=== PATIENT | female | born 1975 | race American Indian/Alaskan Native ===

== ENCOUNTER 2016-09-21 22:18 | Emergency (ER) | payer MEDICAID ==
[2016-09-21] MEDS ORDERED: Ranitidine 50 MG/2 ML SDV ONE (22:53)
[2016-09-21] MEDS ORDERED: Ranitidine 50 MG/2 ML SDV IV SCH (23:00)
[2016-09-21] MEDS ORDERED: Sodium Chloride 0.9% 500 ML IV SCH (23:15)
[2016-09-21 23:27] VITALS: BP 123/73
[2016-09-22] MEDS ORDERED: GI Cocktail Oral Solution 30 ML PO ONE (00:22)
[2016-09-22] MEDS ORDERED: Acetaminophen/HYDROcodone 325-5 MG Tab ONE (00:42)
--- NOTE | 2016-09-22 04:52 | ER ---
HISTORY OF PRESENT ILLLNESS: The patient presents to the emergency room by ambulance. The patient is the historian. Her chief complaint is epigastric pain that developed approximately 4 hours prior to arrival. She did have some dry heaves. In the ambulance, she was given morphine for abdominal discomfort and Zofran for nausea. The patient states that she has had a history of gallstone in the past. She has no history of peptic ulcer disease. She states that she is a smoker, does not do any street drugs, or drink alcohol to any significant degree. She has not had any alcohol recently. She gets her medical care in [place] where they are treating her for hypothyroidism and depression. She is on Synthroid 125 mg p.o. daily, Zoloft 50 mg daily, and Remeron 30 mg p.o. daily. REVIEW OF SYSTEMS: The patient denies headache, fever, chills, cough, wheeze, shortness of breath, chest pain, palpitations, CVA pain, dysuria, joint inflammation, limitations of joint motions, skin rashes, or neurologic complaints. She does think she could be . She does admit to having some constipation. OBJECTIVE: GENERAL: A well-developed, well-nourished female. She is alert and oriented x3. She appears to be in some mild distress due to epigastric discomfort. She has no heaves, no dry heaves. VITAL SIGNS: Upon admission, show temperature 99.3, blood pressure 123/73, pulse is 56, respirations 18, and she is 100% saturated on room air. SKIN: Anicteric. It is dry with good turgor. There is no rash. EYES: EOMI, PERRLA , and anicteric. ENT: Throat is clear and moist. HEART: Regular rate and rhythm. No murmurs, rubs, or gallops. No S3, no S4. LUNGS: Clear. BACK: No CVA or cord tenderness. ABDOMEN: Soft. Bowel sounds x4. No organomegaly. No rebound. No discomfort except for epigastric pain, but this seems to be somewhat mild in nature. NEUROLOGIC: Normal. EXTREMITIES: No clubbing, cyanosis, or edema. Labs were performed. EKG from the ambulance showed normal sinus rhythm, no evidence of acute ischemia. CBC was normal without a shift. CMP was normal. UA was normal. Amylase and lipase were normal. In the emergency room, the patient was given Zantac 50 mg IV and a GI cocktail and she did have some relief with this, but was not totally pain free. A flat and upright was ordered after her test came back negative, the film showed only stool to be present. No evidence of perforation, no air/fluid levels and, no gallstones noted on her x-ray. ASSESSMENT: Epigastric pain. PLAN: The patient will follow up with her physician in the morning. She was given hydrocodone 5/APAP 325 one p.o. q.4 hours p.r.n., #3, were dispensed. A prescription for omeprazole 20 mg 1 p.o. daily was written and she can also use [id number] Zantac p.r.n. as directed on the label. The patient will return if she gets worsening pain, fever, vomiting. The patient was discharged to home, picked up by family members. DIAGNOSES: 1. Epigastric pain. 2. Gastritis. LORNA/YASIR /[id number] NIGEL
--- NOTE | 2016-09-22 09:39 | CR ---
DATE OF SERVICE: 09/21/16 CLINICAL DATA: abdominal pain SUPINE AND UPRIGHT ABDOMEN: There is a moderate amount of gas and stool present throughout the colon. No evidence of obstruction or ileus. No free air. There is a 2 mm calcification in the left pelvis which is most likely vascular. Distal ureteral calculi should be considered. The exam is otherwise negative. [id number] [facility]
== END 2016-09-22 00:56 | disposition home or self-care (01) ==
LOC: LB.ED 22:18
DX: R10.13 Epigastric pain (principal)
CPT/HCPCS: 36415; 74020; 80053; 81001; 81025; 82150; 83690; 85025; 96360; 99284; A9270; J2780; J7050

== ENCOUNTER 2016-12-25 11:05 | Emergency (ER) | payer MEDICAID ==
[2016-12-25] MEDS ORDERED: HYDROmorphone 2 MG/ML Syringe IVPUSH ONE (11:25)
[2016-12-25] MEDS ORDERED: Sodium Chloride 0.9%, Bacteriostatic 10 ML MDV IV SCH (11:30)
[2016-12-25] MEDS ORDERED: HYDROmorphone 2 MG/ML Syringe ONE (11:31)
[2016-12-25 11:53] VITALS: BP 108/68
[2016-12-25] MEDS ORDERED: GI Cocktail Oral Solution 30 ML PO ONE (12:59)
[2016-12-25] MEDS ORDERED: HYDROmorphone 4 MG/ML Syringe IV ONE (13:45)
[2016-12-25] MEDS ORDERED: traMADol 50 MG Tab ONE (14:00)
[2016-12-25] MEDS ORDERED: Omeprazole 20 MG Cap.CR ONE (14:00)
--- NOTE | 2016-12-25 14:40 | EDM.PDOC ---
ED HPI GENERAL MEDICAL PROBLEM - General Stated Complaint: Epigastric pain Time Seen by Provider: 12/25/16 11:05 Source of Information: Reports: Patient History Limitations: Reports: No Limitations - History of Present Illness INITIAL COMMENTS - FREE TEXT/NARRATIVE: Patient is a 41 year old woman with a history of abdominal pain caused both by gallstones and possibly a stomach ulcer. She was supposed to get her gallbladder removed but she has not done that so far. She drank two large doses of Ny Quil last night and this morning she has had worsening abdominal pain to the point she called for the ambulance to come get her and help her with the pain. It feels more like when she was told she possibly had gastritis. No fever or chills or other complaints, no nausea, vomiting or diarrhea and no blood in the stool. Onset: Today, Sudden Onset Date: 12/25/16 Onset Time: 09:00 Duration: Hour(s): (2) Location: Reports: Abdomen (epigastric region) Quality: Reports: Ache, Burning, Same as Previous Episode, Sharp Severity: Severe Improves with: Reports: None Worsens with: Reports: None Context: Reports: Other (History of cholelithiasis and gastritis.) Associated Symptoms: Reports: No Other Symptoms Abdominal Pain Score (Numeric/FACES): 9 - Related Data Allergies Allergy/AdvReac Type Severity Reaction Status Date / Time No Known Allergies Allergy Verified 09/21/16 22:41 Home Meds: Home Meds Levothyroxine Sodium [Synthroid] 125 mg PO DAILY 05/25/13 [History] Mirtazapine 30 mg PO DAILY 07/13/14 [History] Sertraline [Zoloft] 50 mg PO DAILY 07/13/14 [History] Past Medical History HEENT History: Reports: Impaired Vision Respiratory History: Reports: Pneumonia, Recurrent Gastrointestinal History: Reports: Chronic Constipation, Other (See Below) Other Gastrointestinal History: hx gall stones Genitourinary History: Reports: Other (See Below) Other Genitourinary History: kidney stone 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: Musculoskeletal History: Reports: Arthritis, Other (See Below) Other Musculoskeletal History: hx broken colar bone, arthritis in knees Neurological History: Reports: Brain Injury, Concussion Psychiatric History: Reports: Anxiety, Depression Endocrine/Metabolic History: Reports: Hyperthyroidism Social & Family History - Family History Family Medical History: Noncontributory - Tobacco Use Smoking Status *Q: Current Every Day Smoker Years of Tobacco use: 25 Packs/Tins Daily: 1 Used Tobacco, but Quit: No Second Hand Smoke Exposure: Yes - Caffeine Use Caffeine Use: Reports: Coffee, Soda, Tea - Alcohol Use Days Per Week of Alcohol Use: 0 - Recreational Drug Use Recreational Drug Use: Yes Drug Use in Last 12 Months: Yes Recreational Drug Type: Reports: Marijuana/Hashish, Methamphetamine Recreational Drug Use Frequency: Socially ED ROS GENERAL - Review of Systems Review Of Systems: See Below Constitutional: Reports: Decreased Appetite HEENT: Reports: No Symptoms Respiratory: Reports: No Symptoms Cardiovascular: Reports: No Symptoms Endocrine: Reports: No Symptoms GI/Abdominal: Reports: Abdominal Pain (Epigastric region as per HPI.) : Reports: No Symptoms Musculoskeletal: Reports: No Symptoms Skin: Reports: No Symptoms Neurological: Reports: No Symptoms Psychiatric: Reports: No Symptoms Hematologic/Lymphatic: Reports: No Symptoms Immunologic: Reports: No Symptoms ED EXAM, GI/ABD - Physical Exam Exam: See Below Exam Limited By: No Limitations General Appearance: Alert, WD/WN, No Apparent Distress Eyes: Bilateral: Normal Appearance, EOMI Ears: Normal External Exam, Normal Canal, Hearing Grossly Normal, Normal TMs Nose: Normal Inspection, Normal Mucosa, No Blood Throat/Mouth: Normal Inspection, Normal Lips, Normal Teeth, Normal Gums, Normal Oropharynx, Normal Voice, No Airway Compromise Head: Atraumatic, Normocephalic Neck: Normal Inspection, Supple, Non-Tender, Full Range of Motion Respiratory/Chest: No Respiratory Distress, Lungs Clear, Normal Breath Sounds, No Accessory Muscle Use, Chest Non-Tender Cardiovascular: Normal Peripheral Pulses, Regular Rate, Rhythm, No Edema, No Gallop, No JVD, No Murmur, No Rub GI/Abdominal Exam: Soft, No Organomegaly, No Distention, No Abnormal Bruit, No Mass, Tender (Minimal pain on palpation of the epigastric region. Pain described was not commensurate with exam.) Back Exam: Normal Inspection, Full Range of Motion, NT Extremities: Normal Inspection, Normal Range of Motion, Non-Tender, Normal Capillary Refill, No Pedal Edema Neurological: Alert, Oriented, CN II-XII Intact, Normal Cognition, Normal Gait, Normal Reflexes, No Motor/Sensory Deficits Psychiatric: Normal Affect, Normal Mood Skin Exam: Warm, Dry, Intact, Normal Color, No Rash Lymphatic: No Adenopathy Course - Vital Signs Text/Narrative:: Uneventful ED course. Once she got a liter of fluid, a GI cocktail and 1 mg of Dilaudid, her pain had gone from 9/10 to 3/10 and she wanted to go home on some tramadol. She will take Omeprazole 20 mg po q day and Tramadol 50 mg po q 4 hours and she will follow up with her general physician next week if pain returns or worsens. Last Recorded V/S: Last Vital Signs Temp 36.7 C 12/25/16 11:50 Pulse 68 12/25/16 11:50 Resp 16 12/25/16 11:50 BP 108/68 12/25/16 11:50 Pulse Ox 99 12/25/16 11:50 - Orders/Labs/Meds Orders: Active Orders 24 hr Category Date Time Status EKG Documentation Completion [RC] ASDIRECTED Care 12/25/16 11:21 Active Abdomen Pelvis w Cont [CT] Stat Exams 12/25/16 11:21 Taken Labs: Laboratory Tests 12/25/16 12/25/16 12/25/16 Range/Units 10:45 11:40 11:40 WBC 10.1 (4.0-11.0) K/uL RBC 3.71 L (3.80-5.80) M/uL Hgb 10.6 L (11.5-16.5) g/dL Hct 32.4 L (37.0-47.0) % MCV 87 (76-96) fL MCH 28.6 (27.0-32.0) pg MCHC 32.7 (31.0-35.0) g/dL RDW 15.1 (11.0-16.0) % Plt Count 366 (150-500) K/uL MPV 9.3 (6.0-10.0) fL Neut % (Auto) 73.1 H (45.0-70.0) % Lymph % (Auto) 18.8 L (20.0-40.0) % [place] % (Auto) 6.6 (3.0-10.0) % Eos % (Auto) 1.1 (1.0-5.0) % Baso % (Auto) 0.4 (0.0-0.5) % Neut # (Auto) 7.39 (2.00-7.50) K/uL Lymph # (Auto) 1.90 (1.50-4.00) K/uL [place] # (Auto) 0.67 (0.20-0.80) K/uL Eos # (Auto) 0.11 (0.04-0.40) K/uL Baso # (Auto) 0.04 (0.02-0.10) K/uL Sodium 144 (136-145) mmol/L Potassium 4.0 (3.5-5.1) mmol/L Chloride 110 H (98-107) mmol/L Carbon Dioxide 24.2 (21.0-32.0) mmol/L Anion Gap 13.8 (5.0-15.0) mmol/L BUN 10 (8-26) mg/dL Creatinine 0.78 (0.55-1.02) mg/dL Est Cr Clr Drug Dosing 66.80 mL/min Estimated GFR (MDRD) > 60 (>60) MLS/MIN BUN/Creatinine Ratio 12.8 (6-25) Glucose 87 (74-100) mg/dL Calcium 8.7 (8.5-10.1) mg/dL Total Bilirubin 0.3 (0.0-1.0) mg/dL AST 32 (15-37) U/L ALT 19 (12-78) U/L Alkaline Phosphatase 86 (46-116) U/L Troponin I (0.000-0.060) ng/mL Total Protein 7.4 (6.4-8.2) g/dL Albumin 3.6 (3.4-5.0) g/dL Globulin 3.8 (2.2-4.2) g/dL Albumin/Globulin Ratio 0.9 (0.8-2.0) HCG, Qual Negative (NEGATIVE) Urine Color Urine Appearance (CLEAR) Urine pH (5.0-8.0) Ur Specific [place] (1.003-1.030) Urine Protein (NEGATIVE) mg/dL Urine Glucose (UA) (NEGATIVE) mg/dL Urine Ketones (NEGATIVE) mg/dL Urine Occult Blood (NEGATIVE) Urine Nitrite (NEGATIVE) Urine Bilirubin (NEGATIVE) Urine Urobilinogen (0.2-1.0) E.U./dL Ur Leukocyte Esterase (NEGATIVE) Urine RBC /HPF Urine WBC /HPF Ur Squamous Epith Cells /HPF Urine Opiates Screen (NEGATIVE) Ur Oxycodone Screen (NEGATIVE) Urine Methadone Screen (NEGATIVE) U Acetaminophen Screen (NEGATIVE) Ur Barbiturates Screen (NEGATIVE) Ur Tricyclics Screen (NEGATIVE) Ur Phencyclidine Scrn (NEGATIVE) Ur Amphetamine Screen (NEGATIVE) U Methamphetamines Scrn (NEGATIVE) U Benzodiazepines Scrn (NEGATIVE) U Cocaine Metab Screen (NEGATIVE) U Marijuana (THC) Screen (NEGATIVE) 12/25/16 12/25/16 12/25/16 Range/Units 11:40 13:04 13:04 WBC (4.0-11.0) K/uL RBC (3.80-5.80) M/uL Hgb (11.5-16.5) g/dL Hct (37.0-47.0) % MCV (76-96) fL MCH (27.0-32.0) pg MCHC (31.0-35.0) g/dL RDW (11.0-16.0) % Plt Count (150-500) K/uL MPV (6.0-10.0) fL Neut % (Auto) (45.0-70.0) % Lymph % (Auto) (20.0-40.0) % [place] % (Auto) (3.0-10.0) % Eos % (Auto) (1.0-5.0) % Baso % (Auto) (0.0-0.5) % Neut # (Auto) (2.00-7.50) K/uL Lymph # (Auto) (1.50-4.00) K/uL [place] # (Auto) (0.20-0.80) K/uL Eos # (Auto) (0.04-0.40) K/uL Baso # (Auto) (0.02-0.10) K/uL Sodium (136-145) mmol/L Potassium (3.5-5.1) mmol/L Chloride (98-107) mmol/L Carbon Dioxide (21.0-32.0) mmol/L Anion Gap (5.0-15.0) mmol/L BUN (8-26) mg/dL Creatinine (0.55-1.02) mg/dL Est Cr Clr Drug Dosing mL/min Estimated GFR (MDRD) (>60) MLS/MIN BUN/Creatinine Ratio (6-25) Glucose (74-100) mg/dL Calcium (8.5-10.1) mg/dL Total Bilirubin (0.0-1.0) mg/dL AST (15-37) U/L ALT (12-78) U/L Alkaline Phosphatase (46-116) U/L Troponin I < 0.017 (0.000-0.060) ng/mL Total Protein (6.4-8.2) g/dL Albumin (3.4-5.0) g/dL Globulin (2.2-4.2) g/dL Albumin/Globulin Ratio (0.8-2.0) HCG, Qual (NEGATIVE) Urine Color Yellow Urine Appearance Clear (CLEAR) Urine pH 7.0 (5.0-8.0) Ur Specific [place] 1.015 (1.003-1.030) Urine Protein Negative (NEGATIVE) mg/dL Urine Glucose (UA) Negative (NEGATIVE) mg/dL Urine Ketones Negative (NEGATIVE) mg/dL Urine Occult Blood Trace-lysed H (NEGATIVE) Urine Nitrite Negative (NEGATIVE) Urine Bilirubin Negative (NEGATIVE) Urine Urobilinogen 0.2 (0.2-1.0) E.U./dL Ur Leukocyte Esterase Negative (NEGATIVE) Urine RBC 5-10 H /HPF Urine WBC Not seen /HPF Ur Squamous Epith Cells Few /HPF Urine Opiates Screen Negative (NEGATIVE) Ur Oxycodone Screen Negative (NEGATIVE) Urine Methadone Screen Negative (NEGATIVE) U Acetaminophen Screen Positive H (NEGATIVE) Ur Barbiturates Screen Positive H (NEGATIVE) Ur Tricyclics Screen Negative (NEGATIVE) Ur Phencyclidine Scrn Negative (NEGATIVE) Ur Amphetamine Screen Negative (NEGATIVE) U Methamphetamines Scrn Negative (NEGATIVE) U Benzodiazepines Scrn Negative (NEGATIVE) U Cocaine Metab Screen Negative (NEGATIVE) U Marijuana (THC) Screen Positive H (NEGATIVE) Meds: Medications Discontinued Medications Generic Name Dose Route Start Last Admin Trade Name Freq PRN Reason Stop Dose Admin Al Hydroxide/Mg Hydroxide 30 ml 12/25/16 12:59 12/25/16 13:07 Gi Cocktail PO 12/25/16 13:00 30 ml ONETIME ONE Administration Hydromorphone HCl 0.5 mg 12/25/16 11:25 12/25/16 11:25 Dilaudid IVPUSH 12/25/16 11:26 0.5 mg ONETIME ONE Administration Hydromorphone HCl Confirm 12/25/16 11:31 12/25/16 13:07 Dilaudid Administered 12/25/16 11:32 Not Given Dose 2 mg .ROUTE .STK-MED ONE Hydromorphone HCl 0.5 mg 12/25/16 13:45 12/25/16 13:45 Dilaudid IV 12/25/16 13:46 0.5 mg ONETIME ONE Administration Sodium Chloride 1,000 ml 12/25/16 11:30 12/25/16 11:30 Sodium Chloride 0.9% IV 1,000 ml ASDIRECTED TONYA Administration Departure - Departure Time of Disposition: 14:48 Disposition: Home, Self-Care 01 Clinical Impression: Epigastric pain, Cholelithiases, Gastritis, Gastritis - Discharge Information Instructions: Gastritis, Adult, [id number] Referrals: PCP,None [Primary Care Provider] - Care Plan Goals: Take omprazole as directed. May take pain medication as needed for pain. Return to hospital or clinic if symptoms worsen or persist. - My Orders Last 24 Hours: My Active Orders 12/25/16 11:21 EKG Documentation Completion [RC] ASDIRECTED Abdomen Pelvis w Cont [CT] Stat - Assessment/Plan Last 24 Hours: My Active Orders 12/25/16 11:21 EKG Documentation Completion [RC] ASDIRECTED Abdomen Pelvis w Cont [CT] Stat
--- NOTE | 2016-12-26 13:58 | CT ---
DATE OF SERVICE: 12/25/16 CLINICAL DATA: Abdominal pain ENHANCED ABDOMEN AND PELVIS CT Multislice acquisition through the abdomen and pelvis with IV, but without oral contrast, was performed. Comparison is made to a prior exam dated 05/25/13. There is a linear density in the left lung base consistent with linear atelectasis or fibrosis. The lung bases are otherwise clear. There is diffuse fatty infiltration of the liver. No focal hepatic lesions. No gallstones. No definite evidence for cholecystitis. There is mild intrahepatic biliary duct dilatation. The common bile duct is also mildly dilated measuring 9 mm. A distal obstructing lesion cannot be excluded. The spleen appears normal. The pancreas appears normal. The right and left adrenals appear normal. The right and left kidneys appear normal. They enhance symmetrically. No hydronephrosis or hydroureter. The bladder is partially fluid filled; it appears normal. The appendix is not dilated. No evidence of appendicitis. There is fluid within the endometrial cavity of the uterus. There are low- density lesions in both ovaries consistent with bilateral ovarian cysts. The largest is within the left ovary and measures 2.3 cm in diameter. There is a very small amount of free fluid noted within the pelvis. No free air. No dilated loops of bowel. No adenopathy. No aortic aneurysm or dissection. There is a small umbilical hernia containing fat. There is apparent diffuse gastric wall thickening most likely related to nondistention. Gastritis should be considered. IMPRESSIONS 1. Diffuse fatty infiltration of the liver. 2. Mild intrahepatic biliary duct dilatation. The common bile duct is dilated measuring 9 mm. A distal obstructing process should be considered. Endoscopic retrograde cholangiopancreatogram should be considered. 3. Apparent diffuse gastric wall thickening. This is probably related to nondistention. Gastritis should be considered. 4. Bilateral ovarian cysts. The largest is on the left and measures 2.3 cm. Followup ultrasound is recommended to confirm resolution. [id number] [facility]
== END 2016-12-25 14:08 | disposition home or self-care (01) ==
LOC: LB.ED 11:05
DX: K80.20 Calculus of gallbladder without cholecystitis without obstruction (principal); K29.70 Gastritis, unspecified, without bleeding; R10.13 Epigastric pain; M19.90 Unspecified osteoarthritis, unspecified site; F32.9 Major depressive disorder, single episode, unspecified; F41.9 Anxiety disorder, unspecified; E05.90 Thyrotoxicosis, unspecified without thyrotoxic crisis or storm; F17.210 Nicotine dependence, cigarettes, uncomplicated; Z87.01 Personal history of pneumonia (recurrent); Z79.899 Other long term (current) drug therapy
CPT/HCPCS: 36415; 74177; 80053; 80307; 81001; 84484; 84703; 85025; 93005; 96361; 96374; 96376; 99285; A9270; J1170

== ENCOUNTER 2017-12-08 09:59 | Emergency (ER) | payer MEDICAID ==
[2017-12-08] MEDS ORDERED: GI Cocktail Oral Solution 30 ML PO ONE (10:29)
[2017-12-08] MEDS ORDERED: Ondansetron 4 MG Tab.DIS PO ONE (10:29)
[2017-12-08 10:32] VITALS: BP 101/59
[2017-12-08] MEDS ORDERED: Ketorolac 30 MG/ML SDV IVPUSH ONE ×2 (11:00→12:34)
[2017-12-08] MEDS ORDERED: Sodium Chloride 0.9% 1,000 ML IV ONE (11:01)
[2017-12-08] MEDS ORDERED: Ketorolac 30 MG/ML SDV ONE (11:05)
[2017-12-08] MEDS ORDERED: Morphine 10 MG/ML Syringe IVPUSH ONE (11:16)
[2017-12-08] MEDS ORDERED: Morphine 2 MG/ML Syringe IVPUSH ONE ×2 (11:17→12:05)
[2017-12-08] MEDS ORDERED: Morphine 2 MG/ML Syringe ONE (11:23)
[2017-12-08] MEDS ORDERED: Morphine 10 MG/ML SDV ONE (12:13)
--- NOTE | 2017-12-08 14:18 | ER ---
HISTORY OF PRESENT ILLNESS: A 42-year-old lady, who comes in with upper abdominal pain. She is pointing to the midline epigastric area. She comes in by ambulance. She stated that it started this morning after she had some coffee. She denies any falls or injuries. She states she has had history of a similar pain over the last couple of years intermittently, and has been told that she needs her gallbladder out. She has not done this. The patient did vomit once today and is nauseated. She also wants to have a tender spot on the inside of the left thigh checked. She states it hurts and she has noticed a rash there. OBJECTIVE: GENERAL APPEARANCE: The patient is awake and alert. She is uncomfortable from the abdominal pain. She is lying in the position. VITAL SIGNS: Reviewed. She is afebrile. Pulse is 82, blood pressure 101/59. ABDOMEN: Abdomen is soft. There is definite tenderness with even light touch in the upper right and midline areas. Bowel sounds are present and active. SKIN: Warm and dry. LUNGS: Clear. EXTREMITIES: Examining the patient's inner left proximal thigh reveals redness and mild swelling. There is induration in the area that is about 3 to 4 cm in diameter, but there is no fluctuance or pustule noted. INITIAL TREATMENT PLAN: Zofran was given 4 mg sublingually followed by a GI cocktail 30 mL p.o. This did not change the patient's pain at all, but did help with the nausea. After this, an IV was started. She was given Toradol 15 mg IV which brought her pain down to a 5/10. We then gave her morphine 2 mg IV that brought her pain down to 3. LABORATORY DATA: Include a CBC showing a normal white count. Metabolic panel is unremarkable. Liver enzymes are elevated. AST is 264, ALT 82, and alkaline phosphatase at 182. UA shows some subtle abnormalities. Amylase and lipase are normal. Abdominal CT is also normal. DIAGNOSES: 1. Gallbladder attack. 2. Cellulitis with an early stage boil involving the left inner thigh. TREATMENT PLAN: The patient was given 3 more mg of morphine here in the emergency room and she stated this brought her pain down to which she calls slight. She is still lying in a semi- position, but appears more relaxed. The patient will be given 1 L of normal saline per bolus, and before she is discharged, we will give her another 15 mg of Toradol IV. I will give the patient [place] tablets to take as needed, giving 12 tablets, and I will put her on Augmentin for her cellulitis/boil. I advised the patient to use hot packs to this area as well. She is to schedule an ultrasound as soon as she can. Nursing staff will assist with this and I want the patient to be followed up within the next day or two if her symptoms are not improving, if her pain is well controlled, she is to utilize a bland diet and follow up with the ultrasound. The patient has no further questions. FAWN/YASIR /[id number]
--- NOTE | 2017-12-09 00:36 | CT ---
CLINICAL DATA: Abd pain, possible gallstone. UNENHANCED ABDOMEN CT, 08 DECEMBER 2017: Multislice acquisitions through the abdomen without IV or oral contrast was performed. Comparison is made to a prior enhanced Abdomen and Pelvic CT dated 25 December 2016. Breathing motion artifact significantly degrades image quality. The lung bases are clear. The unenhanced liver appears normal. The gallbladder appears normal. The spleen appears normal. The pancreas appears grossly normal. The right and left adrenals appear grossly normal. The right and left kidneys appear grossly normal. No nephrocalcinosis or nephrolithiasis. No hydronephrosis or hydroureter. There is a small umbilical hernia containing fat. No free air. No free fluid. No dilated loops of bowel. No adenopathy. No aortic aneurysm. IMPRESSION: Suboptimal grade study due to significant breathing motion artifact. No acute abnormalities noted. Followup imaging is recommended, if clinically indicated. Job: [id number] [facility]
== END 2017-12-08 13:14 | disposition home or self-care (01) ==
LOC: LB.ED 09:59
DX: K82.9 Disease of gallbladder, unspecified (principal); L03.116 Cellulitis of left lower limb
CPT/HCPCS: 36415; 74150; 80053; 81001; 82150; 83690; 85025; 99284; A9270; J1885; J2270; J7030

== ENCOUNTER 2019-04-08 12:58 | Emergency (ER) | payer MEDICAID ==
[2019-04-08 13:13] VITALS: BP 133/88; PULSE 76
[2019-04-08] MEDS ORDERED: Gabapentin 100 MG Cap ONE (13:20)
[2019-04-08] MEDS ORDERED: valACYclovir 1,000 MG Tab ONE (13:20)
[2019-04-08] MEDS ORDERED: predniSONE 10 MG Tab ONE (13:20)
[2019-04-08] MEDS ORDERED: Acetaminophen/HYDROcodone 325-10 MG Tab PO ONE (13:22)
--- NOTE | 2019-04-08 22:23 | ER ---
HISTORY OF PRESENT ILLNESS: A 43-year-old lady here with complaints of pain involving the right side of her head, her ear hurts, and that radiates up to the confucianist area. She states this started on . She has noticed a small rash starting to develop as well in this area. The patient has not been running a fever. She states the pain is excruciating at times. She has not been vomiting and she denies any falls or injuries. OBJECTIVE: GENERAL APPEARANCE: The patient is awake and alert. She is mildly uncomfortable from pain. VITAL SIGNS: Reviewed. She is afebrile. Blood pressure 133/88, O2 sats of 100%. PHYSICAL EXAM: Examining the right side of the patient's face reveals a small erythematous rash along the hairline just in front of the ear. The patient has pain with even light touch of the external ear just below it and in front of it radiating up to the confucianist area along the hairline basically. The ear canal is normal and the TM is normal in appearance. LABS AND X-RAY: CBC is normal and the sedimentation rate is normal at 8. DIAGNOSIS: Herpes zoster. TREATMENT PLAN: The patient was initially given a [place] tablet 10/325 in the emergency room after the labs were available confirming the diagnosis. We gave her prednisone 40 mg p.o. She will be also started on Neurontin 100 mg capsules one capsule t.i.d. and Valtrex 1 g t.i.d. for 1 week. Prednisone, we will give her a small bottle from the ER which has 15 tablets in it. She is to take 4 tablets a day. I gave the patient a slip to be off work today. I do want her to go home and rest. We talked about passing chickenpox on to someone who has not had a chickenpox infection. I want the patient to follow up in the clinic in a couple of days for a recheck or sooner of course if her pain is not fairly well controlled with these measures. We also talked briefly about the possibility of postherpetic neuralgia. The patient has no further questions. CRS/MODL /[id number]
== END 2019-04-08 14:50 | disposition home or self-care (01) ==
LOC: LB.ED 12:58
DX: B02.9 Zoster without complications (principal)
CPT/HCPCS: 36415; 85025; 85651; 99284; A9270-GY

== ENCOUNTER 2021-02-04 18:57 | Emergency (ER) | payer MEDICAID ==
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
[2021-02-04] MEDS ORDERED: diphenhydrAMINE 12.5 MG/5 ML Liquid 120 ML Bottle PO ONE (19:39)
[2021-02-04 22:24] VITALS: BP 118/80; PULSE 85
== END 2021-02-04 19:30 | disposition home or self-care (01) ==
LOC: LB.ED 18:57
DX: F11.23 Opioid dependence with withdrawal (principal); E03.9 Hypothyroidism, unspecified; Z79.899 Other long term (current) drug therapy
CPT/HCPCS: 99283; A9270

== ENCOUNTER 2024-05-09 15:27 | Emergency (ER) | payer MEDICAID ==
[2024-05-09] MEDS ORDERED: Naloxone 2 MG/2 ML Syringe IVPUSH PRN (15:40)
[2024-05-09] MEDS: HYDROmorphone 2 MG/ML Syringe IVPUSH ONE (15:41)
[2024-05-09] MEDS: Ondansetron 4 MG/2 ML SDV IVPUSH ONE (15:41)
[2024-05-09 16:06] LABS: BASOPHILS ABSOLUTE AUTO 0.01 K/uL (0.02-0.10); BASOPHILS PERCENT AUTO 0.1 % (0.0-0.5); EOSINOPHILS PERCENT AUTO 0.6 % (1.0-5.0); HEMATOCRIT 35.2 % (37.0-47.0); HEMOGLOBIN 11.6 g/dL (11.5-16.5); LYMPHOCYTES ABSOLUTE AUTO 1.23 K/uL (1.50-4.00); LYMPHOCYTES PERCENT AUTO 7.4 % (20.0-40.0); MEAN CORPUSCULAR VOLUME 91 fL (76-96); MEAN PLATELET VOLUME 9.1 fL (6.0-10.0); MONOCYTES ABSOLUTE AUTO 0.72 K/uL (0.20-0.80); MONOCYTES PERCENT AUTO 4.3 % (3.0-10.0); NEUTROPHILS ABSOLUTE AUTO 14.61 K/uL (2.00-7.50); NEUTROPHILS PERCENT AUTO 87.6 % (45.0-70.0); PLATELET COUNT,PLT 359 K/uL (150-500); RED BLOOD CELL COUNT 3.87 M/uL (3.80-5.80); RED CELL DISTRIBUTION WIDTH 13.4 % (11.0-16.0); WHITE BLOOD CELL COUNT,WBC 16.7 K/uL (4.0-11.0)
[2024-05-09 16:09] VITALS: PULSE 92
[2024-05-09 16:23] LABS: A/G RATIO 1.1 (0.8-2.0); ALBUMIN 3.9 g/dL (3.4-5.0); ANION GAP 15.1 mmol/L (5.0-15.0); BILIRUBIN TOTAL 0.3 mg/dL (0.0-1.0); BUN/CREATININE RATIO 13.2 (6-25); CALCIUM 8.7 mg/dL (8.5-10.1); CARBON DIOXIDE,CO2 26.3 mmol/L (21.0-32.0); CREATININE 0.76 mg/dL (0.55-1.02); EST CRCL DRUG DOSING (CG) 63.61 mL/min; POTASSIUM,K 3.4 mmol/L (3.5-5.1); PROTEIN TOTAL,TP 7.5 g/dL (6.4-8.2)
[2024-05-09 16:35] LABS: LIPASE 288 U/L (16-77)
[2024-05-09 16:48] LABS: APPEARANCE,URINE CLEAR (CLEAR); COLOR,URINE YELLOW; PH,URINE 5.5 (5.0-8.0)
[2024-05-09 16:49] LABS: BILIRUBIN,URINE NEGATIVE (NEGATIVE); GLUCOSE,URINE NEGATIVE (NEGATIVE); KETONES,URINE NEGATIVE (NEGATIVE); LEUKOCYTE ESTERASE,URINE NEGATIVE (NEGATIVE); MUCUS,URINE FEW /HPF; NITRITE,URINE NEGATIVE (NEGATIVE); OCCULT BLOOD,URINE TRACE-LYSED (NEGATIVE); PROTEIN,URINE TRACE mg/dL (NEGATIVE); RBC,URINE 0-5 /HPF; SQUAMOUS EPITHELIAL CELLS,UR FEW /HPF; UROBILINOGEN,URINE 0.2 E.U./dL (0.2-1.0)
[2024-05-09 16:50] LABS: C-REACTIVE PROTEIN < 5.0 mg/L (<5.0)
[2024-05-09] MEDS ORDERED: Acetaminophen/HYDROcodone 325-5 MG Tab ONE (17:00)
[2024-05-09] MEDS ORDERED: Ondansetron 4 MG Tab.DIS ONE (17:00)
[2024-05-09 17:22] VITALS: BP 121/74
== END 2024-05-09 17:30 | disposition home or self-care (01) ==
LOC: LB.ED 15:29
DX: R10.31 Right lower quadrant pain (principal); Z79.890 Hormone replacement therapy; Z79.899 Other long term (current) drug therapy
CPT/HCPCS: 36415; 74176; 80053; 81001; 83690; 85025; 86140; 96374; 96375; 99285-25; A9270-GY; J1171; J2405; Q0162